=== PATIENT | female | born 1980 | race Caucasian/White ===

== ENCOUNTER 2016-11-14 09:10 | Emergency (ER) | payer BC ==
[~2016-11-14] VITALS: Ht 188 cm; Wt 88.6 kg
[2016-11-14 09:12] VITALS: BP 122/70; PULSE 69; TEMP 97.4
[2016-11-14] MEDS ORDERED: ZOFRAN 4MG T4 MG/TAB PO (10:26)
[2016-11-14] MEDS ORDERED: FLEXERIL 1010 MG/TAB PO (10:26)
== END 2016-11-14 11:02 | disposition home or self-care (01) ==
LOC: COL.ER 09:10
DX: M54.5 Low back pain (principal)
CPT/HCPCS: J1170; J1885; J3360